=== PATIENT | female | born 1935 | race Caucasian/White ===

== ENCOUNTER 2023-10-12 17:45 | Inpatient (IN) | payer MEDICARE ==
[~2023-10-12] VITALS: Ht 162.6 cm; Wt 76.4 kg
[~2023-10-12 17:45] MED LIST: ALPR0.25 PO; AML5T PO; APIX2.5T PO; ASCO500T11 PO; ASPI-378 PO; BIOT5TAB3 PO; FURO20TA3 PO; GLUC500T48 PO; LEV50T PO; METO25TA5 PO; MULT-1018 PO; OMEG100062 PO; OXYB5TAB14 PO; VALS320T PO
[2023-10-12 19:54] LABS: Basophils # (auto) 0.1 10 ^3/uL (0-0.2); Eosinophils # (auto) 0.3 10 ^3/uL (0-0.8); Eosinophils % (auto) 2.4 % (0.0-7.0); Hematocrit 44.3 % (36.0-46.0); Hemoglobin 14.7 g/dL (12.2-16.2); Lymphocytes # (auto) 4.4 10 ^3/uL (0.4-5.4); Lymphocytes % (auto) 31.6 % (10.0-50.0); Mean Corpuscular Hgb Conc. 33.1 g/dL (32.0-36.0); Mean Corpuscular Volume 87.8 fL (80.0-100.0); Monocytes # (auto) 1.1 10 ^3/uL (0-1.3); Neutrophils # (auto) 7.9 10 ^3/uL (1.6-8.6); Nucleated Red Blood Cells % 0.1 %; Red Blood Cells 5.05 10^6/uL (4.0-5.20); White Blood Cell 13.8 10^3/uL (4.4-10.8)
[2023-10-12 20:05] LABS: Anion Gap 7 (5-15); Carbon Dioxide 28 mmol/L (20-30); Chloride 103 mmol/L (98-107); Potassium 4.3 mmol/L (3.5-5.1); Sodium 138 mmol/L (136-145)
[2023-10-12 20:06] LABS: Calcium 10.1 mg/dL (8.7-10.4)
[2023-10-12 20:10] LABS: Glucose 109 mg/dL (74-106)
[2023-10-12 20:11] LABS: BUN/Creatinine Ratio 31.3 (10.0-20.0); Blood Urea Nitrogen 31 mg/dL (9-23); Magnesium 2.2 mg/dL (1.6-2.6)
[2023-10-13] MEDS ORDERED: ONDANSETRON HCL 4 MG/2 ML VIAL IV PRN (04:00)
[2023-10-13] MEDS ORDERED: NITROGLYCERIN 0.4 MG SL TAB SL PRN (04:00)
[2023-10-13] MEDS ORDERED: MORPHINE SULFATE INJ 2 MG/ml SYRG IV PRN (04:00)
[2023-10-13] MEDS: FUROSEMIDE 20 MG TAB PO SCH (06:45)
[2023-10-13] MEDS: LEVOTHYROXINE SODIUM 50 MCG TAB PO SCH (06:47)
[2023-10-13 09:50] LABS: Basophils # (auto) 0.1 10 ^3/uL (0-0.2); Basophils % (auto) 0.7 % (0.0-2.0); Eosinophils # (auto) 0.4 10 ^3/uL (0-0.8); Eosinophils % (auto) 3.3 % (0.0-7.0); Hematocrit 44.5 % (36.0-46.0); Lymphocytes # (auto) 3.5 10 ^3/uL (0.4-5.4); Lymphocytes % (auto) 27.6 % (10.0-50.0); Mean Corpuscular Hemoglobin 29.4 pg (28.0-32.0); Mean Corpuscular Hgb Conc. 33.7 g/dL (32.0-36.0); Mean Corpuscular Volume 87.4 fL (80.0-100.0); Monocytes # (auto) 1.2 10 ^3/uL (0-1.3); Monocytes % (auto) 9.1 % (0.0-12.0); Neutrophils # (auto) 7.5 10 ^3/uL (1.6-8.6); Neutrophils % (auto) 59.3 % (37.0-80.0); Nucleated Red Blood Cells % 0.1 %; Red Blood Cells 5.08 10^6/uL (4.0-5.20); Red Cell Distribution Width 14.9 % (11.8-14.3); White Blood Cell 12.6 10^3/uL (4.4-10.8)
[2023-10-13] MEDS: ASPirin 81 mg TAB PO SCH (10:21)
[2023-10-13] MEDS: APIXABAN 2.5 MG TAB PO SCH (10:22)
[2023-10-13] MEDS: amLODIPine BESYLATE 5 MG TAB PO SCH (10:25)
[2023-10-13] MEDS: METOPROLOL TARTRATE 25 MG TAB PO SCH (10:25)
[2023-10-13] MEDS: VALSARTAN 80 MG TAB PO SCH (10:32)
[2023-10-13 11:34] LABS: Alanine Aminotransferase 33 U/L (7-40); Albumin 4.7 g/dL (3.2-4.8); Alkaline Phosphatase 104 U/L (46-116); Anion Gap 7 (5-15); Aspartate Aminotransferase 32 U/L (13-40); BUN/Creatinine Ratio 23.8 (10.0-20.0); Bilirubin, Total 0.6 mg/dL (0.2-1.0); Blood Urea Nitrogen 24 mg/dL (9-23); Calcium 9.5 mg/dL (8.5-10.1); Carbon Dioxide 28 mmol/L (20-30); Chloride 106 mmol/L (98-107); Glucose 76 mg/dL (74-106); Potassium 4.3 mmol/L (3.5-5.1); Sodium 141 mmol/L (136-145); Total Protein 6.8 g/dL (5.7-8.2)
[2023-10-13] MEDS: cefTRIAXone 1GM/50ML D5W 50 ML IV SCH (14:15)
[2023-10-13 16:40] LABS: Urine Bacteria FEW /hpf (None Seen); Urine Blood Negative /uL (Negative); Urine Budding Yeast OCCASIONAL /hpf (None Seen); Urine Clarity Clear (Clear); Urine Color Light-Yellow (Yellow); Urine Protein, UAD Negative (Negative); Urine Specific Gravity 1.019 (1.001-1.035); Urine Urobilinogen Normal (Negative); Urine WBC 9 /hpf (0 - 5); Urine pH 6.5 (5.0-9.0)
[2023-10-13 17:06] LABS: Amphetamine Screen, Urine Neg (NEGATIVE); Benzodiazephine Screen, Urine Neg (NEGATIVE)
[2023-10-13 17:07] LABS: Barbiturate Scree,Urine Neg (NEGATIVE); Cannabinoid Screen, Urine Neg (NEGATIVE); Cocaine Screen, Urine Neg (NEGATIVE); Opiate Scree,Urine Neg (NEGATIVE); Phencyclidine Screen, Urine Neg (NEGATIVE)
[2023-10-13 17:11] VITALS: BP 165/79; PULSE 56; RESP 16; TEMP 98.4; O2SAT 94
[2023-10-13] MEDS: FUROSEMIDE 40 MG/4 ML VIAL IV SCH (18:44)
[2023-10-13 20:00] VITALS: BP 117/62; PULSE 60; PULSE 65; RESP 20; TEMP 97.8; O2SAT 94
[2023-10-13 21:00] VITALS: BP 130/57; PULSE 60; RESP 20; TEMP 97.6; O2SAT 97
[2023-10-14] VITALS (9 sets, daily range): BP systolic 117–153; BP diastolic 58–77; PULSE 55–80; RESP 16–22; TEMP 97.8–98.7; O2SAT 90–98
[2023-10-14] MEDS ORDERED: ATROPINE SULF 1 MG/10ml SYR IV PRN (01:15)
[2023-10-14 07:19] LABS: Basophils # (auto) 0.1 10 ^3/uL (0-0.2); Basophils % (auto) 0.9 % (0.0-2.0); Eosinophils # (auto) 0.6 10 ^3/uL (0-0.8); Eosinophils % (auto) 5.7 % (0.0-7.0); Hematocrit 40.1 % (36.0-46.0); Hemoglobin 13.6 g/dL (12.2-16.2); Lymphocytes # (auto) 3.9 10 ^3/uL (0.4-5.4); Lymphocytes % (auto) 36.8 % (10.0-50.0); Mean Corpuscular Hemoglobin 29.6 pg (28.0-32.0); Mean Corpuscular Hgb Conc. 33.8 g/dL (32.0-36.0); Mean Corpuscular Volume 87.4 fL (80.0-100.0); Monocytes # (auto) 1.1 10 ^3/uL (0-1.3); Neutrophils # (auto) 4.9 10 ^3/uL (1.6-8.6); Neutrophils % (auto) 46.6 % (37.0-80.0); Nucleated Red Blood Cells % 0.1 %; Red Blood Cells 4.59 10^6/uL (4.0-5.20); Red Cell Distribution Width 14.9 % (11.8-14.3); White Blood Cell 10.6 10^3/uL (4.4-10.8)
[2023-10-14 07:31] LABS: Alanine Aminotransferase 23 U/L (7-40); Albumin 4.1 g/dL (3.2-4.8); Alkaline Phosphatase 84 U/L (46-116); Anion Gap 5 (5-15); Aspartate Aminotransferase 22 U/L (13-40); BUN/Creatinine Ratio 25.6 (10.0-20.0); Bilirubin, Total 0.8 mg/dL (0.2-1.0); Blood Urea Nitrogen 21 mg/dL (9-23); Calcium 9.1 mg/dL (8.5-10.1); Carbon Dioxide 30 mmol/L (20-30); Chloride 104 mmol/L (98-107); Glucose 91 mg/dL (74-106); Potassium 4.1 mmol/L (3.5-5.1); Sodium 139 mmol/L (136-145)
[2023-10-14] MEDS ORDERED: NITR-52 PO (08:16)
[2023-10-14] MEDS: GLUCAGON EMERG KIT 1mg/1ml IV ONE (11:10)
[2023-10-15 06:07] VITALS: BP 115/61; PULSE 63; RESP 19; TEMP 98; O2SAT 94
[2023-10-15 06:34] LABS: Alanine Aminotransferase 25 U/L (7-40); Albumin 4.6 g/dL (3.2-4.8); Alkaline Phosphatase 96 U/L (46-116); Anion Gap 7 (5-15); Aspartate Aminotransferase 19 U/L (13-40); BUN/Creatinine Ratio 30.8 (10.0-20.0); Basophils # (auto) 0.1 10 ^3/uL (0-0.2); Bilirubin, Total 0.8 mg/dL (0.2-1.0); Blood Urea Nitrogen 28 mg/dL (9-23); Calcium 9.8 mg/dL (8.7-10.4); Carbon Dioxide 32 mmol/L (20-30); Chloride 101 mmol/L (98-107); Eosinophils # (auto) 0.5 10 ^3/uL (0-0.8); Eosinophils % (auto) 5.2 % (0.0-7.0); Glucose 98 mg/dL (74-106); Hematocrit 43.2 % (36.0-46.0); Hemoglobin 14.8 g/dL (12.2-16.2); Lymphocytes # (auto) 3.8 10 ^3/uL (0.4-5.4); Lymphocytes % (auto) 36.9 % (10.0-50.0); Mean Corpuscular Hemoglobin 29.7 pg (28.0-32.0); Mean Corpuscular Hgb Conc. 34.3 g/dL (32.0-36.0); Mean Corpuscular Volume 86.6 fL (80.0-100.0); Monocytes % (auto) 9.5 % (0.0-12.0); Neutrophils # (auto) 4.9 10 ^3/uL (1.6-8.6); Neutrophils % (auto) 47.4 % (37.0-80.0); Nucleated Red Blood Cells % 0.1 %; Potassium 4.1 mmol/L (3.5-5.1); Red Blood Cells 4.98 10^6/uL (4.0-5.20); Red Cell Distribution Width 14.8 % (11.8-14.3); Sodium 140 mmol/L (136-145); Total Protein 6.7 g/dL (5.7-8.2); White Blood Cell 10.2 10^3/uL (4.4-10.8)
[2023-10-15 08:30] VITALS: PULSE 62; RESP 14; O2SAT 94
[2023-10-15] MEDS ORDERED: NITR-52 PO (08:40)
[2023-10-15 09:00] VITALS: BP_SYST 148; BP_SYST 150; BP_DIAS 76; BP_DIAS 79; PULSE 70; PULSE 72; RESP 20; TEMP 97.9; O2SAT 91
== END 2023-10-15 09:00 | disposition home or self-care (01) | DRG 291 ==
LOC: ER 17:45 → TELE 10-13 03:57 → TELE-WESTW 10-13 03:57
PROVIDERS: ADMIT Internal Medicine; ATTEND Internal Medicine
DX: I11.0 Hypertensive heart disease with heart failure (principal); I50.33 Acute on chronic diastolic (congestive) heart failure; I48.19 Other persistent atrial fibrillation; D68.9 Coagulation defect, unspecified; N39.0 Urinary tract infection, site not specified; E03.9 Hypothyroidism, unspecified; Z96.642 Presence of left artificial hip joint; R00.1 Bradycardia, unspecified; Z82.41 Family history of sudden cardiac death; Z82.49 Family history of ischemic heart disease and other diseases of the circulatory system; Z85.3 Personal history of malignant neoplasm of breast; Z90.13 Acquired absence of bilateral breasts and nipples; Z90.711 Acquired absence of uterus with remaining cervical stump; Z88.8 Allergy status to other drugs, medicaments and biological substances
CPT/HCPCS: 36415; 71046; 80048; 80053; 80307; 81001; 83605; 83735; 83880; 84439; 84443; 84484; 85025; 87040; 93005; G0378

== ENCOUNTER 2025-02-26 06:08 | Inpatient (IN) | payer MEDICARE ==
[~2025-02-26] VITALS: Ht 160 cm; Wt 73.2 kg
[~2025-02-26 06:08] MED LIST changes: -ASPI-378 PO; -LEV50T PO; +LEVO-848 PO; -METO25TA5 PO; +NITR-52 PO; -OXYB5TAB14 PO
[2025-02-26] MEDS: ceFAZolin 2 GM/D5W50ml 50 ML IV ONE (06:54)
[2025-02-26] MEDS: ROPIVACAINE 0.5% (5MG/ML) 20ML AMPULE IJ ONE (07:09)
[2025-02-26] MEDS: BUPIVACAINE 0.75% INJ 10ML MPV SDV IJ ONE (07:10)
[2025-02-26] MEDS ORDERED: PROPOFOL 10 MG/ML 20 ML IV ONE (07:13)
[2025-02-26] MEDS ORDERED: MIDAZOLAM HCL 2MG/2ML 2ml VIAL (1mg/ml) ONE (07:13)
[2025-02-26] MEDS ORDERED: fentaNYL CITRATE 100 MCG/2 ML VL ONE (07:13)
[2025-02-26] MEDS: CEFEPIME 1GM/50ML 50 ML IV ONE (07:15)
[2025-02-26] MEDS: TRANEXAMIC ACID 20 ML ONE (07:15)
[2025-02-26] MEDS: VANCOMYCIN HCL 1000 MG VL ONE (08:02)
--- NOTE | 2025-02-26 09:36 | DVHOP2 ---
Operative Report - 2 Report Details Date: 02/26/25 Preop Diagnosis: Right hip degenerative arthritis Postop Diagnosis: Right hip degenerative arthritis Surgeon: Esau Agarwal MD Screw Eye Assembler: Valeria MIX Anesthesiologist: Trudi Anesthesia: Regional Drains: Tavo closed wound suction Implant: DonJoy nebulous stem size one, 0 neck length, 48 Melody G7 shell with one acetabular screw 20 mm, flat liner, 32 ceramic head Consent: The patient was informed of the risks and benefits of the procedure. These include but are not limited to complications of anesthesia, postoperative infection, incomplete relief of symptoms, recurrence of symptoms, damage to blood vessels, nerves and tendons, deep venous thrombosis, pulmonary embolism and possible need for repeat surgery in the future. Complications: None Estimated Blood Loss: 100 cc Fluids: See anesthesia record Findings: Denuded cartilage with eburnated bone Indications for Surgery: Right hip degenerative arthritis with severe pain and functional impairment despite nonoperative management Name of Procedure Performed Right total hip arthroplasty Procedure Details Procedure Details: The patient was brought to the operating room and given spinal anesthetic with adequate analgesia obtained. The patient was positioned lateral decubitus with the operative side up, stabilized with hip positioners. Axillary roll applied and lower extremities well-padded. Preop patient received IV Ancef, cefepime and IV tranexamic acid. Surgical timeout was performed verifying patient, laterality and procedure. The hip and lower extremity were prepped and draped in sterile fashion. Incision was made over the greater trochanter. Subcutaneous dissection and hemostasis were performed with Bovie and aqua mantis. I identified the fascia which was incised with Bovie and Charnley retractor inserted. I identified the gluteus medius that was split at the junction of its anterior and middle thirds with Bovie then incised off the anterior greater trochanter. I incised the anterior gluteus minimus which was elevated off the capsule. I elevated the reflected head of the rectus. I then performed anterior capsulectomy with Bovie. I extended capsular incision posterior medially and superior laterally. The head was dislocated. Femoral neck cut was made with saw and head removed. Head diameter was calipered on the back table. I adjusted retractors to expose the acetabulum. I circumferentially removed labral tissue with Bovie. I removed foveal tissue with Bovie, curette and rongeur. I then began reaming sequentially paying attention to inclination and version as I went. I trialed and inserted the shell though I was not satisfied with the position so I removed it. I touched up with the reamers. I reinserted the shell. It had fairly good stability however I decided to add an acetabular screw for additional stability. I removed one of the caps and then drilled and inserted a 20 mm acetabular screw. I also inserted the central cap. I then brought up the flat liner which was spun to make sure there was no soft tissue entrapment then tapped in and stability verified. I then brought my attention to the proximal femur. The leg was placed in the sterile bag anteriorly. I cleaned up soft tissue at the great er trochanter shoulder with Bovie. I then used a rongeur to clip the lateral neck. I then used a box osteotome, canal finder and lateralizing rasp. I sequentially broached to size 1. I trialed with a [0 and -4] neck length and [32] head which was stable though somewhat better with the 0 neck length.. Intraoperative AP pelvis x-ray was obtained to verify length, offset and implant size. The hip was dislocated. Neck and head trial removed. I revised the femoral neck cut with calcar planer. Broach was removed. I tapped in the femoral implant with good fixation achieved. I again trialed and decided that the 0 neck length was more stable. I cleaned and dried the Enamorado taper and tapped on the ceramic head. The hip was again reduced and tested for stability which was good. I irrigated with bactisurge. I placed 2 grams of vancomycin in the deep and superficial wound. I repaired the minimus and medius to the anterior greater trochanter with #[5] FiberWire in running fashion . I oversewed the repair with 0 Vicryl. I repaired the fascia with #1 Ethibond interrupted [id number]. Deep subcutaneous tissue was closed with 0 Vicryl. Superficial subcutaneous tissue was closed with 2-0 Vicryl. The skin was closed with efra. I then applied the Tavo closed wound suction. Patient tolerated the procedure well and was brought to the recovery room in stable condition. Condition Stable Disposition Still a Patient ESAU AGARWAL MD Feb 26, 2025 09:36
[2025-02-26 09:50] VITALS: PULSE 64; RESP 10; O2SAT 96
[2025-02-26] MEDS: ACETAMINOPHEN IV 100 ML IV ONE (09:59)
[2025-02-26] MEDS ORDERED: PATIENTS OWN MEDICATION (Valsartan (Diovan) 1 TAB) PO SCH (10:00)
[2025-02-26] MEDS ORDERED: ONDANSETRON HCL 4 MG/2 ML VIAL IV PRN (10:00)
[2025-02-26] MEDS: PREGABALIN 25 MG CAP PO SCH (10:00)
[2025-02-26] MEDS ORDERED: HYDROmorphone HCL 2 MG/ML VL/or syr IV PRN (10:00)
[2025-02-26] MEDS ORDERED: LEVOTHYROXINE SODIUM 50 MCG TAB PO SCH (10:00)
[2025-02-26] MEDS: FUROSEMIDE 20 MG TAB PO SCH (10:00)
--- NOTE | 2025-02-26 10:07 | DVH ---
Pelvic HIP RADIOGRAPH. CLINICAL INDICATION: INTRA OP TECHNIQUE: 1 views of the pelvis were obtained. FINDINGS: Status post right total hip arthroplasty. Prior left hip arthroplasty. IMPRESSION: 1. Status post right total hip arthroplasty in anatomic alignment
[2025-02-26] MEDS: ACETAMINOPHEN IV 1000 MG/100ML (10MG/ML) IV PRN (10:10)
[2025-02-26] MEDS: HYDROmorphone HCL 2 MG/ML VL/or syr ONE (10:18)
[2025-02-26] MEDS ORDERED: SODIUM CHLORIDE 0.9% 1,000 ML IV SCH (11:30)
[2025-02-26] MEDS: ACETAMINOPHEN 325 MG TAB PO SCH (12:00)
--- NOTE | 2025-02-26 12:29 | DVHINCON2 ---
Date Seen: Feb 26, [address] AGARWAL Family History: Cardiovascular disease G8 MOTHER, G8 FATHER, Colon cancer G8 FATHER, Hypertension G8 MOTHER, G8 FATHER, Allergies: Coded Allergies: SEA Inhibitors (Unverified Allergy, Severe, a fib, 02/21/25) Lisinopril (Verified Allergy, Unknown, 08/05/23) Naproxen (Verified Allergy, Unknown, 08/05/23) Home Meds Active Scripts Nitrofurantoin (Nitrofurantoin) 100 Mg Cap, 100 MG PO BID for 5 Days, CAP Prov:KHUSHBOO NICHOLS RESIDENT 10/15/23 Apixaban Base (ELIQUIS) 2.5 Mg Tab, 2.5 MG PO BID, #60 TAB 5 Refills Prov:JONATHAN KELLEY RESIDENT 08/08/23 Furosemide (Furosemide) 20 Mg Tab, 20 MG PO BID, #60 TAB 3 Refills Prov:JONATHAN KELLEY RESIDENT 08/08/23 Reported Medications Alprazolam (Xanax) 0.25 Mg Tb, 1 TAB PO DAILY, #30 TAB 08/05/23 Biotin (Vitamin H) (BIOTIN) 5 Mg Tab, 5 MG PO, TAB 08/05/23 Ascorbic Acid (VITAMIN C TABLET) 500 Mg Tb, 1 TAB PO DAILY, #30 TAB 3 Refills 08/05/23 [place]-3 Fatty Acids (Fish Oil) 1,000 Mg Cap, 1000 MG PO, CAP 08/05/23 Glucosamine Hydrochloride (GLUCOSAMINE) 500 Mg Tab, 500 MG PO, TAB 08/05/23 Multiple Vitamin (Multivitamins) Tab, 1 TAB PO DAILY, #90 TAB 3 Refills 08/05/23 Valsartan (Diovan) 320 Mg Tab, 1 TAB PO DAILY, #90 TAB 1 Refill 08/05/23 Amlodipine Besylate (NORVASC TABLET) 5 Mg Tb, 1 TAB PO DAILY, #30 TAB 5 Refills 08/05/23 Levothyroxine Sodium (SYNTHROID TABLET) 50 Mcg Tb, 1 TAB PO DAILY, #30 TAB 5 Refills 08/05/23 Current Medications Current Medications Medications (Trade) Dose Ordered Sig/Kira Route PRN Reason Start Time Stop Time Status Last Admin Amlodipine Besylate (Norvasc Tablet) 5 mg DAILY PO 02/26/25 10:00 UNV Furosemide (Lasix Tablet) 20 mg BID PO 02/26/25 10:00 UNV Levothyroxine Sodium (Synthroid Tablet) 50 mcg DAILY PO 02/26/25 10:00 02/26/25 12:25 DC Patient Own Medication 1 tab DAILY PO 02/26/25 10:00 02/26/25 12:25 DC Pregabalin (Lyrica Capsule) 50 mg BID PO 02/26/25 10:00 UNV Apixaban (Eliquis) 2.5 mg BID PO 02/27/25 10:00 04/03/25 09:59 UNV Cefazolin Sodium/ Dextrose 50 ml @ 50 mls/hr Q8HR IV 02/26/25 14:00 02/26/25 22:59 UNV Sodium Chloride 1,000 ml @ 125 mls/hr Q8H IV 02/26/25 11:30 02/26/25 12:25 DC Acetaminophen (Tylenol Tablet) 650 mg Q6HP PO 02/26/25 12:00 UNV Ondansetron HCl (Zofran) 4 mg Q4HP PRN IV NAUSEA / VOMITING 02/26/25 09:45 UNV Oxycodone HCl 5 mg Q4HP PRN PO MODERATE PAIN (4-6 PAIN SCALE) 02/26/25 11:30 UNV Oxycodone HCl 10 mg Q4HP PRN PO SEVERE PAIN (7-10 PAIN SCALE) 02/26/25 11:30 UNV Acetaminophen (Ofirmev) 1,000 mg [id number] PRN IV PAIN SCALE 1-3 OR TEMP>100.4 02/26/25 10:00 02/26/25 10:01 UNV 02/26/25 10:10 Ondansetron HCl (Zofran) 4 mg ONCE PRN IV NAUSEA / VOMITING 02/26/25 10:00 02/26/25 10:01 UNV Hydromorphone HCl (Dilaudid Injection) 0.5 mg Q10M PRN IV SEVERE PAIN (7-10 PAIN SCALE) 02/26/25 10:00 02/26/25 10:41 UNV Sodium Chloride 1,000 ml @ 75 mls/hr [id number] IV 02/26/25 12:30 UNV Levothyroxine Sodium (Synthroid Tablet) 88 mcg QAM@0600 PO 02/27/25 06:00 UNV Valsartan (Diovan) 80 mg DAILY PO 02/27/25 10:00 UNV Vital Signs Vital Signs Date Time Temp Pulse Resp B/P (MAP) Pulse Ox O2 Delivery O2 Flow Rate FiO2 02/26/25 11:05 58 12 133/50 (77) 98 02/26/25 10:10 Nasal Cannula 2.0 02/26/25 09:50 96.9 96.9 Labs/Diagnostic Data Labs Test 02/26/25 06:54 Range/Units POC Glucose 156 H 70-106 mg/dl Assessment SEE DICTATED NOTE Plan discussed with: Patient Date of Service: Feb 26, 2025 Billing Provider: EMA SANCHEZ MD Common Visit Codes: [id number] INP/OBS CARE (HIGH) Secondary Visit Codes: [id number] CARE PLAN 30 MINUTES EMA SANCHEZ MD Feb 26, 2025 12:29
[2025-02-26] MEDS: SODIUM CHLORIDE 0.9% 1,000 ML IV SCH (12:35)
[2025-02-26] MEDS: HYDROcodone-ACET 10/325MG TAB ONE (12:35)
[2025-02-26] MEDS: ceFAZolin 2 GM/D5W50ml 50 ML IV SCH (15:36)
[2025-02-26 15:56] VITALS: BP 133/63; PULSE 80; RESP 17; TEMP 98.9; O2SAT 94
[2025-02-26 16:54] VITALS: BP 146/61; PULSE 74; RESP 18; TEMP 98.6; O2SAT 93
[2025-02-26] MEDS: HYDROcodone-ACET 10/325MG TAB PO ONE (17:21)
--- NOTE | 2025-02-26 17:24 | DVHINCON2 ---
INTERNAL MEDICINE CONSULT HISTORY OF PRESENT ILLNESS: The patient is an 89-year-old lady who was admitted after she underwent surgery on the right hip for DJD of the hip. The patient at this time denies any chest pain. No shortness of breath. No nausea or vomiting. REVIEW OF SYSTEMS: Review of rest systems otherwise currently negative. PAST MEDICAL HISTORY: Significant for hypertension, atrial fibrillation, congestive heart failure, hypothyroidism, and previous history of breast cancer. MEDICATIONS: She takes Eliquis, valsartan, amlodipine, levothyroxine, Lasix. ALLERGIES: LISINOPRIL AND NAPROSYN. SOCIAL HISTORY: Lives alone. Denies smoking or alcohol. FAMILY HISTORY: Negative. PHYSICAL EXAMINATION: GENERAL: The patient is awake and alert. VITAL SIGNS: Temperature of 97.3, pulse 58 per minute irregular, blood pressure 133/50. SHEENT: Unremarkable. There is no JVD. No pedal edema. LUNGS: Equal bilaterally. CARDIOVASCULAR: S1, S2 is irregular. ABDOMEN: Soft. There is no organomegaly. NEUROLOGIC: Nonfocal. MUSCULOSKELETAL: There is a dressing at the site of right hip surgery. ASSESSMENT AND PLAN: * Atrial fibrillation for which the patient will continue on Eliquis and heart rate will be monitored. * Chronic systolic/diastolic heart failure. The patient will be continued on Lasix. * Hypertension. * Hypothyroidism. TSH will be checked. * History of breast cancer with bilateral mastectomy. * Status post right hip surgery for DJD of the hip. The patient will receive physical therapy and pain medication. * Advance care planning: The patient is a full code-Time spent was 18 minutes. MD TARIQ Walker/JEAN PIERRE TID: [id number] RECEIPT: [id number] [facility]
[2025-02-26] MEDS: ONDANSETRON HCL 4 MG/2 ML VIAL IV PRN (17:31)
[2025-02-26 20:00] VITALS: PULSE 60; PULSE 61; RESP 16; O2SAT 91
[2025-02-26 21:00] VITALS: BP 147/57; PULSE 60; RESP 16; TEMP 97.4; O2SAT 91
[2025-02-27] VITALS (9 sets, daily range): BP systolic 100–148; BP diastolic 30–91; PULSE 56–70; RESP 16–18; TEMP 97.6–98.9; O2SAT 90–100
[2025-02-27] MEDS: LEVOTHYROXINE SODIUM 88 MCG TAB PO SCH (05:35)
--- NOTE | 2025-02-27 07:58 | DVH ---
INDICATION: CHF TECHNIQUE: Frontal view of the chest. COMPARISON: XY CHEST TWO VIEWS ROUTINE on DOS: 10/12/23, XY CHEST PORTABLE on DOS: 08/04/23, CT CT TIMO O CHEST CONTRAST on DOS: 08/04/23 FINDINGS: . Cardiomegaly. There is no evidence of pleural disease. The lungs are clear. The bony structures of the chest are intact without fracture. IMPRESSION: 1. Cardiomegaly with mild CHF
[2025-02-27] MEDS: APIXABAN 2.5 MG TAB PO SCH (09:41)
[2025-02-27] MEDS: VALSARTAN 80 MG TAB PO SCH (09:44)
--- NOTE | 2025-02-27 11:19 | DVHPN2 ---
Progress Note Date Seen: Feb 27, 2025 Medical Necessity Reason Pt with a Central, PICC or Fol: No Subjective Patient reports: No new complaints Review of Systems: HEENT:Normal, CVS:Normal, RESPIRATORY:Normal, GI:Normal, :Normal, MSK:Normal, NEURO:Normal Objective vital signs Vital Sign Date Time Temp Pulse Resp B/P (MAP) Pulse Ox O2 Delivery O2 Flow Rate FiO2 02/27/25 09:44 116/42 02/27/25 09:00 97.8 67 17 93 97.8 02/26/25 20:00 Nasal Cannula* 1 24 Total Intake and Output 02/26/25 02/26/25 02/27/25 15:00 23:00 07:00 Intake Total 300 ml 650 ml Balance 300 ml 650 ml medications Current Medications Medications Dose Ordered Sig/Kira Route Start Time Stop Time Status Last Admin Dose Admin Amlodipine Besylate 5 mg DAILY PO 02/26/25 10:00 Furosemide 20 mg BID PO 02/26/25 10:00 02/26/25 21:22 20 MG Pregabalin 50 mg BID PO 02/26/25 10:00 02/27/25 09:41 50 MG Apixaban 2.5 mg BID PO 02/27/25 10:00 04/03/25 09:59 02/27/25 09:41 2.5 MG Acetaminophen 650 mg Q6HP PO 02/26/25 12:00 02/27/25 05:35 650 MG Ondansetron HCl 4 mg Q4HP PRN IV 02/26/25 09:45 02/26/25 17:31 4 MG Oxycodone HCl 5 mg Q4HP PRN PO 02/26/25 11:30 Oxycodone HCl 10 mg Q4HP PRN PO 02/26/25 11:30 02/27/25 11:12 10 MG Sodium Chloride 1,000 ml @ 75 mls/hr [id number] IV 02/26/25 12:30 02/27/25 01:30 75 MLS/HR Levothyroxine Sodium 88 mcg QAM@0600 PO 02/27/25 06:00 02/27/25 05:35 88 MCG Valsartan 80 mg DAILY PO 02/27/25 10:00 Examination: GENERAL:Normal, HEENT:Normal, NECK:Normal, LUNGS:Normal, LUNGS:Abnormal (on oxygen), CVS:Normal, ABDOMEN:Normal, MSK:Normal, SKIN:Normal, NEURO:Normal, :Normal Problem List/Assessment/Plan Problem List/Assessment/Plan * Atrial fibrillation for which the patient will continue on Eliquis and heart rate will be monitored. * acute on Chronic systolic/diastolic heart failure. The patient will be continued on Lasix, dc ivf * Hypertension. * Hypothyroidism. TSH will be checked. * History of breast cancer with bilateral mastectomy. * Status post right hip surgery for DJD of the hip. The patient will receive physical therapy and pain medication. * Advance care planning: The patient is a full code-Time spent was 18 minutes. Plan discussed with: Patient My Orders My Orders Orders - EMA SANCHEZ MD Procedure Category Date Status Time Sodium Chloride 0.9% PHA 02/26/25 In Process 12:30 Levothyroxine Tablet PHA 02/27/25 In Process (Synthroid Tablet) 06:00 Complete Blood Count LAB 02/27/25 Logged 06:00 Comprehensive LAB 02/27/25 Logged Metabolic Panel 06:00 Thyroid Stimulating LAB 02/27/25 Logged Hormone 05:00 Chest Portable XY 02/27/25 Resulted 06:00 Valsartan (Diovan) PHA 02/27/25 In Process 10:00 Basic Metabolic Panel LAB 02/28/25 Verified 06:00 Date of Service: Feb 27, 2025 Billing Provider: EMA SANCHEZ MD Common Visit Codes: [id number] INP/OBS CARE(HIGH) Secondary Visit Codes: [id number] CARE PLAN 30 MINUTES EMA SANCHEZ MD Feb 27, 2025 11:19
[2025-02-27 11:24] LABS: Hematocrit 35.7 % (36.0-46.0); Hemoglobin 11.8 g/dL (12.2-16.2); Mean Corpuscular Hemoglobin 29.7 pg (28.0-32.0); Mean Corpuscular Volume 90.2 fL (80.0-100.0); Nucleated Red Blood Cells % 0.1 %
[2025-02-27 11:39] LABS: Alanine Aminotransferase 25 U/L (7-40); Albumin 3.8 g/dL (3.2-4.8); Alkaline Phosphatase 59 U/L (46-116); Anion Gap 8 (5-15); BUN/Creatinine Ratio 36.4 (10.0-20.0); Bilirubin, Total 0.7 mg/dL (0.2-1.0); Blood Urea Nitrogen 28 mg/dL (9-23); Carbon Dioxide 26 mmol/L (20-31); Chloride 103 mmol/L (98-107); Glucose 110 mg/dL (74-106); Potassium 4.7 mmol/L (3.5-5.1); Sodium 137 mmol/L (136-145)
[2025-02-27 11:40] LABS: Calcium 8.6 mg/dL (8.7-10.4); Total Protein 5.3 g/dL (5.7-8.2)
--- NOTE | 2025-02-27 12:28 | DVHPN2 ---
Progress Note - Dictate Date Seen: Feb 27, 2025 Medical Necessity Reason Pt with a Central, PICC or Fol: No Subjective Patient was sitting up comfortably in bed during my evaluation reports some postoperative hip pain that is only minimally improved with the help of pain medication. Patient reports that she has not yet been able to get up and walk with the help of physical therapy as she still feels really weak to her hip and has lot of pain limiting her ability to move or walk as of yet. Patient reports that she has tried performing gentle [id number]-ia-[id number] exercises while in bed but is limited due to the pain as well. vital signs Vital Sign Date Time Temp Pulse Resp B/P (MAP) Pulse Ox O2 Delivery O2 Flow Rate FiO2 02/27/25 09:44 116/42 02/27/25 09:00 97.8 67 17 93 97.8 02/26/25 20:00 Nasal Cannula* 1 24 Total Intake and Output 02/26/25 02/26/25 02/27/25 15:00 23:00 07:00 Intake Total 300 ml 650 ml Balance 300 ml 650 ml medications Current Medications Medications Dose Ordered Sig/Kira Route Start Time Stop Time Status Last Admin Dose Admin Amlodipine Besylate 5 mg DAILY PO 02/26/25 10:00 Furosemide 20 mg BID PO 02/26/25 10:00 02/26/25 21:22 20 MG Pregabalin 50 mg BID PO 02/26/25 10:00 02/27/25 09:41 50 MG Apixaban 2.5 mg BID PO 02/27/25 10:00 04/03/25 09:59 02/27/25 09:41 2.5 MG Acetaminophen 650 mg Q6HP PO 02/26/25 12:00 02/27/25 05:35 650 MG Ondansetron HCl 4 mg Q4HP PRN IV 02/26/25 09:45 02/26/25 17:31 4 MG Oxycodone HCl 5 mg Q4HP PRN PO 02/26/25 11:30 Oxycodone HCl 10 mg Q4HP PRN PO 02/26/25 11:30 02/27/25 11:12 10 MG Levothyroxine Sodium 88 mcg QAM@0600 PO 02/27/25 06:00 02/27/25 05:35 88 MCG objective A&O x4 in no acute distress Hip range of motion grossly limited with pain on movement Tavo dressing clean, dry, intact, and maintaining suction No distal edema or calf tenderness to palpation Neurovascularly intact with cap refill less than 2 seconds laboratory and microbiology Laboratory Tests 02/27/25 11:10 Test 02/27/25 11:10 Range/Units Serum Glucose 110 H 74-106 mg/dL Assessment/Plan Continue current management as well as pain control and advised the patient to initiate physical therapy and may be weight-bearing as tolerated with the assistance of a walker. We will continue monitoring patient and will re- evaluate patient tomorrow for possible discharge home pending ambulation with physical therapy. Patient understood and agreed. Plan discussed with: Patient GABRIELA GIRALDO Feb 27, 2025 12:28
[2025-02-28] VITALS (8 sets, daily range): BP systolic 119–149; BP diastolic 52–69; PULSE 50–74; RESP 16–18; TEMP 97.3–98.1; O2SAT 82–99
[2025-02-28 07:30] LABS: Anion Gap 9 (5-15); Carbon Dioxide 23 mmol/L (20-31); Chloride 99 mmol/L (98-107); Potassium 4.7 mmol/L (3.5-5.1)
[2025-02-28 07:31] LABS: Calcium 9.0 mg/dL (8.7-10.4)
[2025-02-28 07:36] LABS: BUN/Creatinine Ratio 20.7 (10.0-20.0); Blood Urea Nitrogen 19 mg/dL (9-23); Glucose 86 mg/dL (74-106)
[2025-02-28 07:43] LABS: Sodium 131 mmol/L (136-145)
--- NOTE | 2025-02-28 14:32 | DVHPN2 ---
Progress Note Date Seen: Feb 28, 2025 Medical Necessity Reason Pt with a Central, PICC or Fol: No Subjective Patient reports: No new complaints Review of Systems: HEENT:Normal, CVS:Normal, RESPIRATORY:Normal, GI:Normal, :Normal, MSK:Normal, NEURO:Normal Objective vital signs Vital Sign Date Time Temp Pulse Resp B/P (MAP) Pulse Ox O2 Delivery O2 Flow Rate FiO2 02/28/25 10:00 141/58 02/28/25 09:00 98.1 63 18 95 98.1 02/28/25 08:10 Nasal Cannula* 3 32 Total Intake and Output 02/27/25 02/27/25 02/28/25 15:00 23:00 07:00 Intake Total 225 ml 320 ml 500 ml Balance 225 ml 320 ml 500 ml medications Current Medications Medications Dose Ordered Sig/Kira Route Start Time Stop Time Status Last Admin Dose Admin Amlodipine Besylate 5 mg DAILY PO 02/26/25 10:00 02/28/25 10:00 5 MG Furosemide 20 mg BID PO 02/26/25 10:00 02/28/25 10:00 20 MG Pregabalin 50 mg BID PO 02/26/25 10:00 02/28/25 10:00 50 MG Apixaban 2.5 mg BID PO 02/27/25 10:00 04/03/25 09:59 02/28/25 10:00 2.5 MG Acetaminophen 650 mg Q6HP PO 02/26/25 12:00 02/28/25 12:22 650 MG Ondansetron HCl 4 mg Q4HP PRN IV 02/26/25 09:45 02/27/25 12:29 4 MG Oxycodone HCl 5 mg Q4HP PRN PO 02/26/25 11:30 Oxycodone HCl 10 mg Q4HP PRN PO 02/26/25 11:30 02/28/25 14:02 10 MG Levothyroxine Sodium 88 mcg QAM@0600 PO 02/27/25 06:00 02/28/25 05:33 88 MCG Examination: GENERAL:Normal, HEENT:Normal, NECK:Normal, LUNGS:Normal, CVS:Normal, ABDOMEN:Normal, MSK:Normal, MSK:Abnormal (RIGHT HIP DRESSING), SKIN:Normal, NEURO:Normal, :Normal laboratory and microbiology Laboratory Tests 02/28/25 05:49 02/27/25 11:10 Test 02/28/25 05:49 Range/Units Serum Glucose 86 74-106 mg/dL Problem List/Assessment/Plan Problem List/Assessment/Plan * Atrial fibrillation for which the patient will continue on Eliquis and heart rate will be monitored. * acute on Chronic systolic/diastolic heart failure. The patient will be continued on Lasix, dc ivf * Hypertension. * Hypothyroidism. TSH will be checked. * History of breast cancer with bilateral mastectomy. * Status post right hip surgery for DJD of the hip. The patient will receive physical therapy and pain medication. * Advance care planning: The patient is a full code-Time spent was 18 minutes. Plan discussed with: Patient Date of Service: Feb 28, 2025 Billing Provider: EMA SANCHEZ MD Common Visit Codes: [id number] INP/OBS CARE(HIGH) EMA SANCHEZ MD Feb 28, 2025 14:32
--- NOTE | 2025-02-28 17:48 | DVHDS2 ---
Discharge Summary Date of Admission Feb 26, 2025 at 09:40 Date of Discharge: Feb 28, 2025 Labs/Diagnostic Data: Laboratory Results Test 02/28/25 05:49 02/27/25 11:10 02/26/25 06:54 Sodium Level 131 mmol/L (136-145) Potassium Level 4.7 mmol/L (3.5-5.1) Chloride Level 99 mmol/L (98-107) Carbon Dioxide Level 23 mmol/L (20-31) Anion Gap 9 (5-15) Blood Urea Nitrogen 19 mg/dL (9-23) Creatinine 0.92 mg/dL (0.550-1.02) Glomerular Filtration Rate Calc 60 mL/min (>90) BUN/Creatinine Ratio 20.7 (10.0-20.0) Serum Glucose 86 mg/dL (74-106) Calcium Level 9.0 mg/dL (8.7-10.4) White Blood Count 16.6 10^3/uL (4.4-10.8) Red Blood Count 3.96 10^6/uL (4.0-5.20) Hemoglobin 11.8 g/dL (12.2-16.2) Hematocrit 35.7 % (36.0-46.0) Mean Corpuscular Volume 90.2 fL (80.0-100.0) Mean Corpuscular Hemoglobin 29.7 pg (28.0-32.0) Mean Corpuscular Hemoglobin Concent 32.9 g/dL (32.0-36.0) Red Cell Distribution Width 15.7 % (11.8-14.3) Platelet Count 244 10^3/uL (140-450) Mean Platelet Volume 8.6 fL (6.9-10.8) Neutrophils (%) (Auto) 76.5 % (37.0-80.0) Lymphocytes (%) (Auto) 10.8 % (10.0-50.0) Monocytes (%) (Auto) 10.8 % (0.0-12.0) Eosinophils (%) (Auto) 1.3 % (0.0-7.0) Basophils (%) (Auto) 0.6 % (0.0-2.0) Neutrophils # (Auto) 12.7 10 ^3/uL (1.6-8.6) Lymphocytes # (Auto) 1.8 10 ^3/uL (0.4-5.4) Monocytes # (Auto) 1.8 10 ^3/uL (0-1.3) Eosinophils # (Auto) 0.2 10 ^3/uL (0-0.8) Basophils # (Auto) 0.1 10 ^3/uL (0-0.2) Nucleated Red Blood Cells 0.1 % Total Bilirubin 0.7 mg/dL (0.2-1.0) Aspartate Amino Transferase (AST) 55 U/L (13-40) Alanine Aminotransferase (ALT) 25 U/L (7-40) Alkaline Phosphatase 59 U/L (46-116) Total Protein 5.3 g/dL (5.7-8.2) Albumin 3.8 g/dL (3.2-4.8) Thyroid Stimulating Hormone (TSH) 1.77 uIU/mL (0.55-4.78) POC Glucose 156 mg/dl (70-106) Other Laboratory Tests 02/28/25 05:49 02/27/25 11:10 Brief Hx & Hospital Course: Patient was brought to the hospital on Tuesday to undergo a right total hip arthroplasty. She tolerated the procedure well without complications and was kept overnight for postoperative observation. Patient reports that she has been experiencing severe postoperative hip pain which limited her physical activity and was unable to get up and walk yesterday and was only able to get up and take a few steps in her room today. Patient is requesting a transfer to [facility] for further assistance during the acute phase of her recovery of her total hip replacement. I advised the patient to follow up with our office in 10-14 days for her 1st postoperative evaluation. Patient understood and agreed. Condition at Discharge: Stable Final Diagnosis/Problems List Right hip degenerative arthritis Discharge Disposition: Longterm Facility Discharge Instruct/Medications Diet: Regular Activity: See Comment Activity comment: Patient to remain weight-bearing as tolerated with the assistance of a walker Follow Up/Referral: Patient instructed to follow up with our office in 10-14 days for her 1st postoperative evaluation Medications: Rx sent via our outpatient EMR system Scheduled Alprazolam (Xanax), 1 TAB PO DAILY, (Reported) Amlodipine Besylate (Norvasc Tablet), 1 TAB PO DAILY, (Reported) Apixaban Base (Eliquis), 2.5 MG PO BID Ascorbic Acid (Vitamin C Tablet), 1 TAB PO DAILY, (Reported) Furosemide (Furosemide), 20 MG PO BID Levothyroxine Sodium (Synthroid Tablet), 1 TAB PO DAILY, (Reported) Multiple Vitamin (Multivitamins), 1 TAB PO DAILY, (Reported) Nitrofurantoin (Nitrofurantoin), 100 MG PO BID Valsartan (Diovan), 1 TAB PO DAILY, (Reported) Miscellaneous Medications Biotin (Vitamin H) (Biotin), 5 MG PO, (Reported) Glucosamine Hydrochloride (Glucosamine), 500 MG PO, (Reported) [place]-3 Fatty Acids (Fish Oil), 1,000 MG PO, (Reported) Discharge Statement: "Patient was advised to return to the ER or call 911 if any headaches, dizziness, shortness of breath, chest pain, abdominal pain, bleeding, fevers, or worsening of medical condition. Patient was counseled about treatment plan, medications, possible side effects, patientverbalized understanding. All questions were answered to the best of my ability. This discharge took greater then 30 minutes in planning, reviewing documentation, counseling the patient, and discussing with other team members." ASSESSMENT ASSESSMENT Assessment Right hip degenerative arthritis GABRIELA GIRALDO Feb 28, 2025 17:48
--- NOTE | 2025-02-28 17:50 | DVHPN2 ---
Progress Note - Dictate Date Seen: Feb 28, 2025 Medical Necessity Reason Pt with a Central, PICC or Fol: No Subjective Patient was sitting up comfortably in bed during my evaluation reports some postoperative hip pain that continues to be minimally improved with the help of pain medication. Patient reports that she was able to get up and take a few steps in her bedroom with the help of her walker today but is still limited due to the pain. Patient reports that she has tried performing gentle [id number] exercises while in bed but is limited due to the pain as well. vital signs Vital Sign Date Time Temp Pulse Resp B/P (MAP) Pulse Ox O2 Delivery O2 Flow Rate FiO2 02/28/25 16:33 97.8 68 18 146/68 (94) 94 97.8 02/28/25 08:10 Nasal Cannula* 3 32 Total Intake and Output 02/27/25 02/27/25 02/28/25 15:00 23:00 07:00 Intake Total 225 ml 320 ml 500 ml Balance 225 ml 320 ml 500 ml medications Current Medications Medications Dose Ordered Sig/Kira Route Start Time Stop Time Status Last Admin Dose Admin Amlodipine Besylate 5 mg DAILY PO 02/26/25 10:00 02/28/25 10:00 5 MG Furosemide 20 mg BID PO 02/26/25 10:00 02/28/25 10:00 20 MG Pregabalin 50 mg BID PO 02/26/25 10:00 02/28/25 10:00 50 MG Apixaban 2.5 mg BID PO 02/27/25 10:00 04/03/25 09:59 02/28/25 10:00 2.5 MG Acetaminophen 650 mg Q6HP PO 02/26/25 12:00 02/28/25 12:22 650 MG Ondansetron HCl 4 mg Q4HP PRN IV 02/26/25 09:45 02/27/25 12:29 4 MG Oxycodone HCl 5 mg Q4HP PRN PO 02/26/25 11:30 Oxycodone HCl 10 mg Q4HP PRN PO 02/26/25 11:30 02/28/25 14:02 10 MG Levothyroxine Sodium 88 mcg QAM@0600 PO 02/27/25 06:00 02/28/25 05:33 88 MCG objective A&O x4 in no acute distress Hip range of motion grossly limited with pain on movement Tavo dressing clean, dry, intact, and maintaining suction No distal edema or calf tenderness to palpation Neurovascularly intact with cap refill less than 2 seconds laboratory and microbiology Laboratory Tests 02/28/25 05:49 02/27/25 11:10 Test 02/28/25 05:49 Range/Units Serum Glucose 86 74-106 mg/dL Assessment/Plan We will be placing orders for transfer to [place] for further assistance during the acute phase with the patient's 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 I instructed the patient to remain weight-bearing as tolerated with the assistance of a walker and to call our office if she has any questions or concerns. I instructed the patient to maintain her dressing clean, dry, intact, and maintaining suction. Rx sent via our outpatient EMR system. Patient understood and agreed. Plan discussed with: Patient, Son GABRIELA GIRALDO Zane MIX Feb 28, 2025 17:50
[2025-03-01] VITALS (8 sets, daily range): BP systolic 137–156; BP diastolic 43–69; PULSE 60–76; RESP 16–21; TEMP 97.6–98.8; O2SAT 90–96
[2025-03-01 06:09] LABS: Hematocrit 34.2 % (36.0-46.0); Hemoglobin 11.6 g/dL (12.2-16.2); Mean Corpuscular Hemoglobin 29.7 pg (28.0-32.0); Mean Corpuscular Volume 87.6 fL (80.0-100.0); Nucleated Red Blood Cells % 0.0 %
[2025-03-01 06:29] LABS: Chloride 99 mmol/L (98-107); Potassium 4.5 mmol/L (3.5-5.1); Sodium 136 mmol/L (136-145)
[2025-03-01 06:30] LABS: Anion Gap 10 (5-15); Calcium 9.1 mg/dL (8.7-10.4); Carbon Dioxide 27 mmol/L (20-31)
[2025-03-01 06:36] LABS: BUN/Creatinine Ratio 22.4 (10.0-20.0); Blood Urea Nitrogen 17 mg/dL (9-23); Glucose 91 mg/dL (74-106)
--- NOTE | 2025-03-01 10:30 | DVHPN2 ---
Subjective Patient denies any symptoms at this time. Reviewed: Care Plan, H&P, Labs, Medications Changes from previous H/P or p: No Changes General: Per HPI Objective Vitals Vital Signs Date Time Temp Pulse Resp B/P (MAP) Pulse Ox O2 Delivery O2 Flow Rate FiO2 03/01/25 09:54 156/99 03/01/25 08:25 97.8 75 18 94 97.8 02/28/25 20:00 Nasal Cannula* 3 32 Intake/Output Intake and Output 03/01/25 07:00 Intake Total 1230 ml Output Total 800 ml Balance 430 ml Intake Oral 1230 ml Output Urine Total 800 ml # Voids 6 General Appearance: Alert, Oriented X3, Cooperative, No acute distress HEENT: Atraumatic, PERRLA Lungs: Clear to auscultation, Normal air movement Cardiovascular: Normal S1, Normal S2 Skin: Dry, Intact, Other (Dressing dry and intact to his) Psych/Mental Status: Mental status NL, Mood NL Medications Current Medications Medications Dose Ordered Sig/Kira Route Start Time Stop Time Status Last Admin Dose Admin Amlodipine Besylate 5 mg DAILY PO 02/26/25 10:00 03/01/25 09:53 5 MG Furosemide 20 mg BID PO 02/26/25 10:00 02/28/25 21:10 20 MG Pregabalin 50 mg BID PO 02/26/25 10:00 03/01/25 09:53 50 MG Apixaban 2.5 mg BID PO 02/27/25 10:00 04/03/25 09:59 03/01/25 09:53 2.5 MG Acetaminophen 650 mg Q6HP PO 02/26/25 12:00 03/01/25 05:30 650 MG Ondansetron HCl 4 mg Q4HP PRN IV 02/26/25 09:45 02/27/25 12:29 4 MG Oxycodone HCl 5 mg Q4HP PRN PO 02/26/25 11:30 Oxycodone HCl 10 mg Q4HP PRN PO 02/26/25 11:30 02/28/25 14:02 10 MG Levothyroxine Sodium 88 mcg QAM@0600 PO 02/27/25 06:00 03/01/25 05:30 88 MCG Laboratory Results Laboratory Tests 03/01/25 05:07 Chemistry Test 03/01/25 05:07 Calcium Level 9.1 mg/dL (8.7-10.4) Labs and/or images reviewed: Labs reviewed by me, Image(s) reviewed by me Assessment/Plan Assessment/Plan Impression: -degenerative joint disease, status post THR of right hip. -atrial fibrillation with controlled rate -acute on chronic systolic and diastolic heart failure -primary hypertension -hypothyroidism Plan: -patient has been discharged, pending placement at [facility] -continue anticoagulation -continue guideline directed medical therapy for heart failure -thyroid supplementation -pain management -off her bowel regimen, requesting prunes Total time spent with patient discussing and formulating plan of care: 35 minutes. This medical document was created using an electronic medical record system with [employer] dictation system. Although this document has been carefully reviewed, there may still be some phonetic and typographical errors. These areas are purely typographical due to imperfections of the software programs, and do not reflect any compromise in the patient's medical care. Plan discussed with: Patient, Other (RN) Date of Service: Mar 01, 2025 Billing Provider: LORE FOX NP Common Visit Codes: [id number] INP/OBS CARE(HIGH) LORE FOX NP Mar 01, 2025 10:29
--- NOTE | 2025-03-01 13:01 | DVHPN2 ---
Progress Note - Dictate Date Seen: Mar 01, 2025 Medical Necessity Reason Pt with a Central, PICC or Fol: No Subjective Patient was sitting up comfortably in bed during my evaluation reports some postoperative hip pain that continues to be minimally improved with the help of pain medication. Patient reports that she was able to get up and walk with the help of physical therapy and her walker and was able to get down the kennedy to the nurse's station and back to her room albeit with postop pain. Patient reports that she has tried performing gentle [id number] exercises while in bed but continues to be limited due to the pain as well. Patient reports that she is otherwise feeling well denying any other complaints or concerns during my evaluation. vital signs Vital Sign Date Time Temp Pulse Resp B/P (MAP) Pulse Ox O2 Delivery O2 Flow Rate FiO2 03/01/25 09:54 156/99 03/01/25 08:25 97.8 75 18 94 97.8 03/01/25 08:00 Nasal Cannula* 3 32 Total Intake and Output 02/28/25 02/28/25 03/01/25 15:00 23:00 07:00 Intake Total 640 ml 590 ml Output Total 800 ml Balance 640 ml -210 ml medications Current Medications Medications Dose Ordered Sig/Kira Route Start Time Stop Time Status Last Admin Dose Admin Amlodipine Besylate 5 mg DAILY PO 02/26/25 10:00 03/01/25 09:53 5 MG Furosemide 20 mg BID PO 02/26/25 10:00 02/28/25 21:10 20 MG Pregabalin 50 mg BID PO 02/26/25 10:00 03/01/25 09:53 50 MG Apixaban 2.5 mg BID PO 02/27/25 10:00 04/03/25 09:59 03/01/25 09:53 2.5 MG Acetaminophen 650 mg Q6HP PO 02/26/25 12:00 03/01/25 12:25 650 MG Ondansetron HCl 4 mg Q4HP PRN IV 02/26/25 09:45 02/27/25 12:29 4 MG Oxycodone HCl 5 mg Q4HP PRN PO 02/26/25 11:30 Oxycodone HCl 10 mg Q4HP PRN PO 02/26/25 11:30 02/28/25 14:02 10 MG Levothyroxine Sodium 88 mcg QAM@0600 PO 02/27/25 06:00 03/01/25 05:30 88 MCG objective A&O x4 in no acute distress Hip range of motion grossly limited with pain on movement Tavo dressing clean, dry, intact, and maintaining suction No distal edema or calf tenderness to palpation Neurovascularly intact with cap refill less than 2 seconds laboratory and microbiology Laboratory Tests 03/01/25 05:07 Test 03/01/25 05:07 Range/Units Serum Glucose 91 74-106 mg/dL Assessment/Plan Pending response from [facility] for transfer for further assistance during the patient's acute recover review phase of her rehabilitation from her right total hip replacement. I instructed the patient to remain weight-bearing as tolerated with the assistance of a walker and to call our office if she has any questions or concerns. I instructed the patient to maintain her dressing clean, dry, intact, and maintaining suction. Rx sent via our outpatient EMR system. Patient understood and agreed. Plan discussed with: Patient GABRIELA GIRALDO Mar 01, 2025 13:01
--- NOTE | 2025-03-01 14:16 | DVH ---
Indication: post op evaluation of right JULIEN Technique: XY PELVIS APXY Comparison: None FINDINGS/IMPRESSION: Bilateral hip arthroplasty. Soft tissue emphysema and edema surrounding the right hip consistent with recent postoperative changes /hip arthroplasty. Large volume stool within the colon.
[2025-03-02 01:03] VITALS: BP 143/77; PULSE 79; RESP 17; TEMP 97.5; O2SAT 96
[2025-03-02 05:00] VITALS: BP 158/49; PULSE 66; RESP 17; TEMP 97.8; O2SAT 98
[2025-03-02 08:00] VITALS: PULSE 78; RESP 17; O2SAT 95
[2025-03-02 09:00] VITALS: BP 165/78; PULSE 79; RESP 19; TEMP 98.3; O2SAT 96
--- NOTE | 2025-03-02 11:20 | DVHPN2 ---
Progress Note - Dictate Date Seen: Mar 02, 2025 Medical Necessity Reason Pt with a Central, PICC or Fol: No Subjective Patient was sitting up comfortably in bed during my evaluation reports some continued postoperative hip pain that continues to be minimally improved with the help of pain medication. Patient reports that she was able to get up and walk with the help of physical therapy and her walker and was able to get down the kennedy to the nurse's station and back to her room albeit with some continued postop pain. Patient reports that she has tried performing gentle dvcmq-[id number] exercises while in bed but continues to be limited due to the pain but notes improvement since surgery. Patient reports that she is otherwise feeling well denying any other complaints or concerns during my evaluation. vital signs Vital Sign Date Time Temp Pulse Resp B/P (MAP) Pulse Ox O2 Delivery O2 Flow Rate FiO2 03/02/25 09:20 165/78 03/02/25 09:00 98.3 79 19 96 98.3 03/01/25 20:00 Nasal Cannula* 3 32 Total Intake and Output 03/01/25 03/01/25 03/02/25 15:00 23:00 07:00 Intake Total 860 ml 834 ml Balance 860 ml 834 ml medications Current Medications Medications Dose Ordered Sig/Kira Route Start Time Stop Time Status Last Admin Dose Admin Amlodipine Besylate 5 mg DAILY PO 02/26/25 10:00 03/02/25 09:20 5 MG Furosemide 20 mg BID PO 02/26/25 10:00 03/02/25 09:20 20 MG Pregabalin 50 mg BID PO 02/26/25 10:00 03/02/25 09:19 50 MG Apixaban 2.5 mg BID PO 02/27/25 10:00 04/03/25 09:59 03/02/25 09:19 2.5 MG Acetaminophen 650 mg Q6HP PO 02/26/25 12:00 03/02/25 06:03 650 MG Ondansetron HCl 4 mg Q4HP PRN IV 02/26/25 09:45 02/27/25 12:29 4 MG Oxycodone HCl 5 mg Q4HP PRN PO 02/26/25 11:30 Oxycodone HCl 10 mg Q4HP PRN PO 02/26/25 11:30 03/01/25 21:17 10 MG Levothyroxine Sodium 88 mcg QAM@0600 PO 02/27/25 06:00 03/02/25 06:03 88 MCG objective A&O x4 in no acute distress Hip range of motion grossly limited with pain on movement Tavo dressing clean, dry, intact, and maintaining suction No distal edema or calf tenderness to palpation Neurovascularly intact with cap refill less than 2 seconds Pelvic x-ray reviewed and demonstrated: Bilateral hip arthroplasty. Soft tissue emphysema and edema surrounding the right hip consistent with recent postoperative changes /hip arthroplasty. Large volume stool within the colon. laboratory and microbiology Laboratory Tests 03/01/25 05:07 Test 03/01/25 05:07 Range/Units Serum Glucose 91 74-106 mg/dL Assessment/Plan Patient reports that she has currently scheduled to be transferred to [facility] later this afternoon and advised the patient to remain weight-bearing as tolerated with the assistance of a walker. I instructed the patient to maintain her dressings clean, dry, intact, and maintaining suction to call our office if she has any further questions or concerns. I also advised the patient to follow up with our office in 10-14 days for her 1st postoperative evaluation. Rx sent via our outpatient EMR system. Patient understood and agreed. Plan discussed with: Patient GABRIELA GIRALDO Mar 02, 2025 11:20
[2025-03-02 12:32] VITALS: BP 128/74; PULSE 82; RESP 21; TEMP 98.3; O2SAT 92
--- NOTE | 2025-03-02 15:11 | DVHPN2 ---
Subjective The patient is seen and examined at bedside. No complaint today. Waiting for transportation to go to [facility] rehab. The patient has been accepted and bed available today. Reviewed: Care Plan, H&P, Labs, Medications Changes from previous H/P or p: No Changes General: Per HPI Objective Vitals Vital Signs Date Time Temp Pulse Resp B/P (MAP) Pulse Ox O2 Delivery O2 Flow Rate FiO2 03/02/25 12:32 98.3 82 21 128/74 (92) 92 98.3 03/02/25 08:00 Room Air* 0 21 Intake/Output Intake and Output 03/02/25 07:00 Intake Total 1694 ml Balance 1694 ml Intake Oral 1694 ml # Voids 11 General Appearance: Alert, Oriented X3, Cooperative, No acute distress HEENT: Atraumatic, PERRLA Lungs: Clear to auscultation, Normal air movement Cardiovascular: Normal S1, Normal S2 Skin: Dry, Intact, Other (Dressing dry and intact to his) Psych/Mental Status: Mental status NL, Mood NL Medications Current Medications Medications Dose Ordered Sig/Kira Route Start Time Stop Time Status Last Admin Dose Admin Amlodipine Besylate 5 mg DAILY PO 02/26/25 10:00 03/02/25 09:20 5 MG Furosemide 20 mg BID PO 02/26/25 10:00 03/02/25 09:20 20 MG Pregabalin 50 mg BID PO 02/26/25 10:00 03/02/25 09:19 50 MG Apixaban 2.5 mg BID PO 02/27/25 10:00 04/03/25 09:59 03/02/25 09:19 2.5 MG Acetaminophen 650 mg Q6HP PO 02/26/25 12:00 03/02/25 06:03 650 MG Ondansetron HCl 4 mg Q4HP PRN IV 02/26/25 09:45 02/27/25 12:29 4 MG Oxycodone HCl 5 mg Q4HP PRN PO 02/26/25 11:30 Oxycodone HCl 10 mg Q4HP PRN PO 02/26/25 11:30 03/01/25 21:17 10 MG Levothyroxine Sodium 88 mcg QAM@0600 PO 02/27/25 06:00 03/02/25 06:03 88 MCG Laboratory Results Laboratory Tests 03/01/25 05:07 Labs and/or images reviewed: Labs reviewed by me Assessment/Plan Assessment/Plan -degenerative joint disease, status post THR of right hip. -atrial fibrillation with controlled rate -acute on chronic systolic and diastolic heart failure -primary hypertension -hypothyroidism Plan: -patient has been discharged, placement at [facility] today -continue anticoagulation -continue guideline directed medical therapy for heart failure -thyroid supplementation -pain management -off her bowel regimen, requesting prunes This medical document was created using an electronic medical record system with [employer] direct computerized dictation system. Although this document has been carefully reviewed, there may still be some phonetic and typographical errors. These areas are purely typographical due to imperfections of the software programs, and do not reflect any compromise in the patient's medical care. Plan discussed with: Patient Date of Service: Mar 02, 2025 Billing Provider: OTONIEL ESTRADA MD Common Visit Codes: [id number] INP/OBS CARE(HIGH) OTONIEL ESTRADA MD Mar 02, 2025 15:10
== END 2025-03-02 14:55 | DRG 469 ==
LOC: SUR 06:08 → OVERFLOW 09:40 → TELE-WESTW 15:25
PROVIDERS: ADMIT Nurse Practitioner Acute Care; ATTEND Nurse Practitioner Acute Care
PROC: 0SR903Z Replacement of Right Hip Joint with Ceramic Synthetic Substitute, Open Approach (ICD-10-PCS; principal; 2025-02-26 07:28)
DX: M16.11 Unilateral primary osteoarthritis, right hip (principal); I50.43 Acute on chronic combined systolic (congestive) and diastolic (congestive) heart failure; I48.91 Unspecified atrial fibrillation; I11.0 Hypertensive heart disease with heart failure; E03.9 Hypothyroidism, unspecified; Z82.49 Family history of ischemic heart disease and other diseases of the circulatory system; Z80.0 Family history of malignant neoplasm of digestive organs; Z88.3 Allergy status to other anti-infective agents; Z79.01 Long term (current) use of anticoagulants; Z79.899 Other long term (current) drug therapy; Z90.13 Acquired absence of bilateral breasts and nipples; Z85.3 Personal history of malignant neoplasm of breast
CPT/HCPCS: 36415; 71045; 72170; 73501; 80048; 80053; 82962; 84443; 85025; 86850; 86900; 86901; 97110; 97116; 97163; 97530; G0378; J0131; J2250; J2405; J2704; J3490